=== PATIENT | female | born 1995 | race Hispanic/Latino ===

== ENCOUNTER 2016-10-09 17:26 | Emergency (ER) | payer OTHER ==
[~2016-10-09 17:26] MED LIST: NAPROXEN500 MG PO
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
[2016-10-09] MEDS ORDERED: BIOTIN5 M2 PO (18:08)
--- NOTE | 2016-10-09 19:18 | RADIOLOGY REPORT ---
EXAMINATION: XR CHEST CLINICAL INFORMATION: Chest wall pain COMPARISON: None TECHNIQUE: 2 views of the chest were obtained. FINDINGS: No significant abnormality is noted involving the heart, lungs, mediastinum, bony thorax or soft tissues. IMPRESSION: Unremarkable examination.
[2016-10-09] MEDS ORDERED: IBUPROFEN800 M1 PO (19:22)
[2016-10-09 19:31] VITALS: BP 119/68
== END 2016-10-09 19:56 ==
LOC: ERH 17:26
DX: S20.219A Contusion of unspecified front wall of thorax, initial encounter (principal); R07.9 Chest pain, unspecified; V47.0XXA Car driver injured in collision with fixed or stationary object in nontraffic accident, initial encounter; Y92.410 Unspecified street and highway as the place of occurrence of the external cause
CPT/HCPCS: 81025; 93005; 93010